=== PATIENT | female | born 1965 | race Caucasian/White ===

== ENCOUNTER → 2019-06-13 | Outpatient (CLI) | payer OTHER ==
[~2019-06-13] MED LIST: ACCUPRIL10 MG PO; AVELOX 400 MG400 M1 PO; BENTYL 20 MG TA20 M1 PO; CIPRO500 MG PO; CIPROFLOXACIN500 M1 PO; CLEOCIN HCL150 MG PO; COLACE 100 MG100 MG PO; FLAGYL500 MG PO; FLOMAX0.4 MG PO; HYDROCODONE-AP1 EAC6 PO; IBUPROFEN 600600 M1 PO; LEVAQUIN 500 M500 M2 PO; NORCO 5-325 TA1 EACH PO; ONDANSETRON HCL4 M2 PO; PRILOSEC 20 MG20 MG PO; QUINU5 PD PO; SENNA-S TABLET1 EACH PO; STOOL SOFTENER100 MG PO; TYLENOL325 MG PO; ZYRTEC10 M5 PO; ZYRTEC10 MG PO
[2019-06-13 11:49] LABS: ABSOLUTE BASOPHILS 0.1 thou/uL (0.0-0.2); ABSOLUTE EOSINOPHILS 0.2 thou/uL (0.0-0.7); ABSOLUTE MONOCYTES 0.7 thou/uL (0.0-1.2); ABSOLUTE NEUTROPHILS 5.5 thou/uL (1.6-8.1); BASOPHILS 0.8 %; EOSINOPHILS 1.9 %; HEMATOCRIT 39.5 % (37.0-47.0); HEMOGLOBIN 13.5 gm/dL (12.0-15.0); LYMPHOCYTES 31.2 %; MCH 28.6 pg (26.0-34.0); MCHC 34.2 g/dL (28.0-37.0); MCV 83.7 fL (80.0-100.0); MONOCYTES 7.7 %; MPV 8.4 fl. (7.2-11.1); NUCLEATED RBCS 0 /100WBC; PLATELET COUNT* 307 thou/uL (150-400); POLYS 58.4 %; RBC 4.72 mil/uL (4.20-5.00); RDW-CV 14.6 % (10.5-14.5); WBC 9.5 thou/uL (4.0-11.0)
[2019-06-13 12:15] LABS: ALBUMIN 3.4 g/dL (3.4-5.0); ALKALINE PHOSPHATASE 90 U/L (46-116); ANION GAP 9 mmol/L (7-16); BUN 13 mg/dL (7-18); CALCIUM 8.9 mg/dL (8.5-10.1); CHLORIDE 104 mmol/L (98-107); CHOLESTEROL 191 mg/dL (<200); CO2 27 mmol/L (21-32); CREATININE 0.8 mg/dL (0.6-1.3); GLUCOSE 82 mg/dL (70-99); HDL CHOLESTEROL 44 mg/dL (>40); LDL CHOLESTEROL 135 mg/dL (<100); POTASSIUM 4.2 mmol/L (3.5-5.1); SGOT 14 U/L (15-37); SGPT 26 U/L (30-65); SODIUM 140 mmol/L (136-145); TC:HDL 4.3 Ratio (Not establshd); TOTAL BILIRUBIN 0.2 mg/dL (<0.1-1.0); TOTAL PROTEIN 8.3 g/dL (6.4-8.2); TRIGLYCERIDE 64 mg/dL (<150); VLDL 13 mg/dL (<40)
[2019-06-13 12:16] LABS: SERUM ASSESSMENT Clear
== END ==
LOC: M.LAB 11:00
PROVIDERS: Family Medicine
DX: R50.9 Fever, unspecified (principal); R53.82 Chronic fatigue, unspecified; G47.33 Obstructive sleep apnea (adult) (pediatric)

== ENCOUNTER 2019-06-24 16:42 | Emergency (ER) | payer OTHER ==
[~2019-06-24] VITALS: Ht 165.1 cm; Wt 86.2 kg
[2019-06-24] MEDS ORDERED: IBUPROFEN 800800 MG PO (17:34)
[2019-06-24] MEDS ORDERED: HYDROCODON-ACE1 EAC7 PO (17:34)
[2019-06-24 18:24] VITALS: BP 151/96
== END 2019-06-24 18:26 | disposition home or self-care (01) ==
LOC: M.ERS 16:42
DX: S92.001A Unspecified fracture of right calcaneus, initial encounter for closed fracture (principal); K21.9 Gastro-esophageal reflux disease without esophagitis; I10 Essential (primary) hypertension; Z90.49 Acquired absence of other specified parts of digestive tract; Z87.442 Personal history of urinary calculi; Z98.890 Other specified postprocedural states; Z88.1 Allergy status to other antibiotic agents; Z88.8 Allergy status to other drugs, medicaments and biological substances; W18.39XA Other fall on same level, initial encounter; Y93.89 Activity, other specified; Y92.89 Other specified places as the place of occurrence of the external cause; Y99.8 Other external cause status

== ENCOUNTER → 2019-07-14 | Outpatient (CLI) | payer OTHER ==
[~2019-07-14] MED LIST changes: +ASA81BEC PO; +BENADRYL25 MG PO; +HYDROCODON-ACE1 EAC7 PO; +IBUPROFEN 800800 MG PO; +LIPITOR40 MG PO; -PRILOSEC 20 MG20 MG PO; +PRILOSEC OTC20 MG PO
--- NOTE | 2019-07-17 08:52 | SLEEP ---
[address] [address] SLEEP STUDY REPORT Name: PARKER TUCKER Room: [facility]#: [id number] Admission: 07/14/19 Attend Phys: Oscar Angela Discharge: Date of : 61 Report #: [id number] THIS REPORT FOR: //name// CC: Gale Bolanos This study has been reviewed in its entirety by a board certified sleep specialist DATE OF SERVICE: 07/14/2019 ATTENDING PHYSICIAN: Gale Bolanos DO The patient is 53 years old who weighs 200 pounds with a BMI of 33.3. The patient's [place] score was 7. The patient underwent diagnostic sleep study performed at [facility]. During the night study, the patient spent 436 minutes in bed and slept for 263 minutes with a low sleep efficiency of 60%. Sleep latency was 33.9 minutes with a REM latency of 254 minutes. Sleep architecture showed normal stage 1 sleep, increased stage 2 sleep, normal slow wave and reduced REM sleep. During the night of the study, the patient had 14 obstructive apneas, 1 mixed apnea, 1 central apnea. There were 25 hypopneas. The patient's apnea-hypopnea index was 9.4 per hour with a REM index of 59 per hour and a supine index of 21 per hour. EKG monitoring revealed an average heart rate of 72 beats per minute. No sustained arrhythmias observed. PLMS were seen at an index of 73 per hour and 19 per hour caused EEG arousals. Nocturnal oximetry study revealed an average oxygen saturation of 96% with the lowest of 84%. 1.9 minutes were spent in oxygen saturation of less than 88%. Due to low AHI, the patient did not meet the split night criteria for CPAP initiation. IMPRESSION: 1. Mild sleep apnea-hypopnea syndrome with moderate increase during supine sleep and further worsening during REM sleep. Total apnea-hypopnea index 9.4 per hour with a supine apnea-hypopnea of 21 per hour and a REM apnea-hypopnea index of 59 per hour. 2. Reduced sleep efficiency resulting from sleep maintenance insomnia. 3. Severe periodic limb movements at an index of 73 per hour and 19 per hour caused EEG arousals. 4. No clinically significant [place] [address] SLEEP STUDY REPORT Name: PARKER TUCKER Room: [facility]#: [id number] Admission: 07/14/19 Attend Phys: Oscar Angela Discharge: Date of : 61 Report #: [id number] RECOMMENDATIONS: 1. If the patient is clinically symptomatic or has comorbid conditions, then consider treatment of sleep apnea with CPAP. Alternate treatment options include use of an oral appliance. 2. Weight loss is advised. 3. Avoid INVENTORY ADMINISTRATOR depressants. 4. Cautioned regarding driving until symptoms of sleep apnea resolve with the above recommendations. 5. The patient should also be further evaluated for symptoms of restless legs during the day and if present, it can be treated with dopaminergic-agonist agents. <ELECTRONICALLY SIGNED> By: Houston Newman MD 07/17/19 0852 2219 2228Aman Jerry Newman MD /nt
== END ==
LOC: M.SLEEPLAB 06-27 09:00
DX: G47.33 Obstructive sleep apnea (adult) (pediatric) (principal); G47.30 Sleep apnea, unspecified

== ENCOUNTER 2019-07-17 14:49 | Inpatient (IN) | payer OTHER ==
[~2019-07-17] VITALS: Ht 165.1 cm; Wt 93.8 kg
[~2019-07-17 14:49] MED LIST changes: -ASA81BEC PO; -BENADRYL25 MG PO; -LIPITOR40 MG PO
[2019-07-17 14:57] VITALS: BP 168/112
[2019-07-17 15:39] LABS: ABSOLUTE BASOPHILS 0.1 thou/uL (0.0-0.2); ABSOLUTE EOSINOPHILS 0.1 thou/uL (0.0-0.7); ABSOLUTE LYMPHOCYTES 2.7 thou/uL (0.8-5.3); ABSOLUTE MONOCYTES 0.5 thou/uL (0.0-1.2); ABSOLUTE NEUTROPHILS 7.7 thou/uL (1.6-8.1); BASOPHILS 0.5 %; EOSINOPHILS 0.6 %; HEMATOCRIT 40.7 % (37.0-47.0); HEMOGLOBIN 13.9 gm/dL (12.0-15.0); LYMPHOCYTES 24.1 %; MCH 28.5 pg (26.0-34.0); MCHC 34.1 g/dL (28.0-37.0); MCV 83.8 fL (80.0-100.0); MONOCYTES 4.7 %; MPV 8.5 fl. (7.2-11.1); NUCLEATED RBCS 0 /100WBC; PLATELET COUNT* 297 thou/uL (150-400); POLYS 70.1 %; RBC 4.86 mil/uL (4.20-5.00); RDW-CV 15.1 % (10.5-14.5)
[2019-07-17 15:46] LABS: PROTIME 10.4 Seconds (9.20-11.50)
[2019-07-17 15:51] LABS: CREATININE 0.8 mg/dL (0.6-1.3); POTASSIUM 3.5 mmol/L (3.5-5.1)
[2019-07-17 15:56] LABS: ALBUMIN 3.4 g/dL (3.4-5.0); TOTAL BILIRUBIN 0.2 mg/dL (<0.1-1.0)
[2019-07-17 18:58] LABS: CHOLESTEROL 235 mg/dL (<200); HDL CHOLESTEROL 52 mg/dL (>40); LDL CHOLESTEROL 169 mg/dL (<100); TC:HDL 4.5 Ratio (Not establshd); TRIGLYCERIDE 73 mg/dL (<150); VLDL 15 mg/dL (<40)
[2019-07-17 18:59] LABS: SERUM ASSESSMENT Clear
--- NOTE | 2019-07-17 19:04 | NUR ---
RECIEVED REPORT AND ASSUMED CARE OF PT.
--- NOTE | 2019-07-17 19:55 | NUR ---
REPORT GIVEN TO JERZY VICKERS. PT BEING TRANSPORTED TO ROOM 206 FOR ADMISSION.
[2019-07-17 19:56] VITALS: BP 143/82
[2019-07-17 20:15] VITALS: BP 148/91
[2019-07-18 00:33] VITALS: BP 140/67
[2019-07-18] MEDS ORDERED: BENADRYL25 MG PO (01:24)
[2019-07-18 04:28] VITALS: BP 129/84
[2019-07-18 05:23] LABS: ABSOLUTE EOSINOPHILS 0.1 thou/uL (0.0-0.7); ABSOLUTE LYMPHOCYTES 3.5 thou/uL (0.8-5.3); ABSOLUTE MONOCYTES 0.8 thou/uL (0.0-1.2); ABSOLUTE NEUTROPHILS 7.8 thou/uL (1.6-8.1); BASOPHILS 0.3 %; HEMOGLOBIN 12.8 gm/dL (12.0-15.0); LYMPHOCYTES 28.5 %; MCH 28.3 pg (26.0-34.0); MCHC 33.5 g/dL (28.0-37.0); MCV 84.4 fL (80.0-100.0); MONOCYTES 6.4 %; MPV 8.4 fl. (7.2-11.1); NUCLEATED RBCS 0 /100WBC; PLATELET COUNT* 293 thou/uL (150-400); POLYS 63.8 %; RBC 4.51 mil/uL (4.20-5.00); RDW-CV 15.1 % (10.5-14.5); WBC 12.2 thou/uL (4.0-11.0)
[2019-07-18 05:29] LABS: CALCIUM 8.6 mg/dL (8.5-10.1); CREATININE 0.9 mg/dL (0.6-1.3); POTASSIUM 4.2 mmol/L (3.5-5.1); TOTAL BILIRUBIN 0.2 mg/dL (<0.1-1.0); TOTAL PROTEIN 7.2 g/dL (6.4-8.2)
--- NOTE | 2019-07-18 05:56 | NUR ---
REPORT RECIEVED FROM ER. PT ORIENTED TO ROOM, CALL LIGHT SHOWN, FALL AGREEMENT GONE OVER, PT STATED UNDERSTANDING. ADMISSION DOCUMENTED. MEDS GIVEN PER E-MAR. PT REFUSING IV THIS SHIFT, STATING THAT IF SHE HAS TO HAVE ONE FOR THE STRESS TEST THEY CAN PUT ONE IN HER WHEN ITS TIME FOR THAT. TELE MONITOR IN PLACE TRACING SR. WILL CONTINUE WITH PLAN OF CARE.
[2019-07-18 08:00] VITALS: BP 116/76
--- NOTE | 2019-07-18 09:41 | EKG ---
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1965 Requested By: Srinivas Forde Order Number: [id number] MD: Kevan Alfonso Measurements Intervals [place] Rate: 68 P: 49 AR: 163 QRS: -8 QRSD: 104 T: 12 QT: 402 QTc: 428 Interpretive Statements Sinus rhythm Probable left ventricular hypertrophy Baseline wander in lead(s) V1 No previous ECG available for comparison Electronically Signed On 07-18-2019 9:40:55 RODBUSTER by Kevan Alfonso [email or web address] <ELECTRONICALLY SIGNED> By: Kevan Alfonso MD, [facility] 07/18/19 0940 1459 1459 Kevan Alfonso MD, [facility] /EPI
--- NOTE | 2019-07-18 10:41 | NUR ---
Pt is A&O. Resides at home with . Independent. Pt states that she had a sleep study on Sunday, waiting for results to determine if she will need a home cpap. No hx of HH or SNF. Goal is home at co. Following.
[2019-07-18 11:49] VITALS: BP 116/76
[2019-07-18] MEDS ORDERED: LIPITOR40 MG PO (12:45)
[2019-07-18] MEDS ORDERED: ASA81BEC PO (12:46)
[2019-07-18 12:51] VITALS: BP 116/76
[2019-07-18 12:52] VITALS: BP 116/76
== END 2019-07-18 13:23 | disposition home or self-care (01) | DRG 311 ==
LOC: M.ERS 14:49 → M.2W 16:10 → M.TBA-ER 16:10 → M.2W 20:42
PROVIDERS: Emergency Medicine; ADMIT Internal Medicine
DX: I20.0 Unstable angina (principal); K21.9 Gastro-esophageal reflux disease without esophagitis; I10 Essential (primary) hypertension; E86.0 Dehydration; E78.00 Pure hypercholesterolemia, unspecified; Z53.29 Procedure and treatment not carried out because of patient's decision for other reasons; K57.90 Diverticulosis of intestine, part unspecified, without perforation or abscess without bleeding; Z87.442 Personal history of urinary calculi; Z90.49 Acquired absence of other specified parts of digestive tract; Z79.899 Other long term (current) drug therapy; Z88.1 Allergy status to other antibiotic agents; Z88.8 Allergy status to other drugs, medicaments and biological substances; Z82.49 Family history of ischemic heart disease and other diseases of the circulatory system; Z80.8 Family history of malignant neoplasm of other organs or systems; Z83.3 Family history of diabetes mellitus

== ENCOUNTER 2020-11-17 04:23 | Observation (INO) | payer OTHER ==
[~2020-11-17] VITALS: Ht 165.1 cm; Wt 88.0 kg
[~2020-11-17 04:23] MED LIST changes: +ASA81BEC PO; +BENADRYL25 MG PO; +LIPITOR40 MG PO
[2020-11-17 04:30] VITALS: BP 141/93
[2020-11-17 05:15] LABS: URINE BILIRUBIN NEGATIVE (Negative); URINE BLOOD NEGATIVE (Negative); URINE CLARITY CLEAR; URINE COLOR YELLOW; URINE GLUCOSE-RANDOM NEGATIVE (Negative); URINE KETONES NEGATIVE (Negative); URINE LEUKOCYTES-REFLEX NEGATIVE (Negative); URINE NITRITE-REFLEX NEGATIVE (Negative); URINE PROTEIN NEGATIVE (Negative); URINE SPECIFIC GRAVITY >= 1.030 (1.005-1.030); URINE UROBILINOGEN 0.2 E.U./dl (0.2-1.0)
[2020-11-17 05:31] LABS: ABSOLUTE EOSINOPHILS 0.2 thou/uL (0.0-0.7); ABSOLUTE LYMPHOCYTES 1.2 thou/uL (0.8-5.3); ABSOLUTE MONOCYTES 0.7 thou/uL (0.0-1.2); ABSOLUTE NEUTROPHILS 10.3 thou/uL (1.6-8.1); BASOPHILS 0.1 %; EOSINOPHILS 1.3 %; HEMATOCRIT 41.7 % (37.0-47.0); LYMPHOCYTES 9.8 %; MCHC 33.5 g/dL (28.0-37.0); MCV 86.6 fL (80.0-100.0); MONOCYTES 5.3 %; MPV 9.2 fl. (7.2-11.1); NUCLEATED RBCS 0 /100WBC; PLATELET COUNT* 258 thou/uL (150-400); POLYS 83.5 %; RBC 4.81 mil/uL (4.20-5.00); RDW-CV 14.9 % (10.5-14.5); WBC 12.3 thou/uL (4.0-11.0)
[2020-11-17 05:35] LABS: CALCIUM 9.1 mg/dL (8.5-10.1); CREATININE 0.7 mg/dL (0.6-1.3)
[2020-11-17 05:39] LABS: ALBUMIN 3.4 g/dL (3.4-5.0); TOTAL BILIRUBIN 0.5 mg/dL (<0.1-1.0); TOTAL PROTEIN 7.5 g/dL (6.4-8.2)
[2020-11-17 09:10] VITALS: BP 110/70
[2020-11-17 09:25] VITALS: BP 122/78
--- NOTE | 2020-11-17 10:33 | EKG ---
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 : 1965 Requested By: Susanna Moralez Order Number: [id number] MD: Sage Grimm Measurements Intervals [place] Rate: 67 P: 48 MN: 170 QRS: -18 QRSD: 104 T: -13 QT: 391 QTc: 413 Interpretive Statements Sinus rhythm Left ventricular hypertrophy Borderline T abnormalities, inferior leads Compared to ECG 07/17/2019 14:59:19 no change Electronically Signed On 11-17-2020 10:33:33 CDT by Sage Grimm [email or web address] <ELECTRONICALLY SIGNED> By: Sage Grimm MD, [facility] 11/17/20 1033 0503 0503 Sage Grimm MD, [facility] /EPI
[2020-11-17 16:32] VITALS: BP 123/82
--- NOTE | 2020-11-17 19:22 | CON ---
[address] [address] CONSULTATION Name: PARKER TUCKER Room: [address] M.R.#: [id number] Admission: 11/17/20 Attend Phys: Apolonia German MD Discharge: Date of : 61 Report #: [id number] THIS REPORT FOR: cc: Gale Bolanos Linda J. DO Vardakis, Gregory DO DOC #: [id number] cc: DO Guadalupe Angela DATA MANAGEMENT MANAGER DATE OF CONSULTATION: 11/17/2020 Please note at the time of this dictation, the patient was seen and physically examined by myself. REASON FOR CONSULTATION: Epigastric abdominal pain. HISTORY OF PRESENT ILLNESS: This is a 55-year-old female presented to the Emergency Room after just not feeling right over the weekend, and on Sunday, started having some diarrhea in the middle of the night. She took a little bit of Imodium that seemed to help, but she continued to have some loose stools. She then had some episodes of some chilling. This started on Sunday night. She felt a little bit better on Sunday. Then, she began having some issues with abdominal pain in the epigastric area radiating into her back and upwards like she did when she had her gallbladder attack. She did not have any nausea or vomiting. This pain would come and go and did not last for a very long period of time. However, the intensity began getting worse. She did come to the Emergency Room once, but pain was no longer there, and as she was returning home, it came back with even significantly more pain prompting her to come back to the Emergency Room and then she was admitted. She did report that she felt like she was a little dehydrated. The patient does have some acid reflux, for which she takes [id number] omeprazole that helps with that. She has had a colonoscopy done over at [facility] and to her knowledge, everything was normal except for some diverticulosis. Otherwise, her bowel habits are normally soft and formed on a daily basis. She has not noticed any bright red blood or any melanotic stool. ALLERGIES: Include AMOXICILLIN, FLAGYL, AND COMPAZINE. MEDICATIONS FROM HOME: 1. Omeprazole. 2. Accupril. 3. Stool softener. 4. Benadryl. 5. [place] [address] CONSULTATION Name: PARKER TUCKER Room: [address]#: [id number] Admission: 11/17/20 Attend Phys: Apolonia German MD Discharge: Date of : 61 Report #: [id number] 6. Enteric coated aspirin. PAST MEDICAL HISTORY: 1. Diverticulosis with some diverticulitis. 2. . 3. She has had her wisdom teeth out. 4. Vaginal births. 6. Lithotripsy. 7. Laparoscopic cholecystectomy on 09/05/2017. PAST SURGICAL HISTORY: 1. Laparoscopic cholecystectomy. 2. Lithotripsy. FAMILY HISTORY: Negative for any GI or female cancers. SOCIAL HISTORY: Denies any alcohol, tobacco, or illegal drug use. REVIEW OF SYSTEMS: Twelve-point review of systems is essentially negative except what is mentioned in the HPI. PHYSICAL EXAMINATION: VITAL SIGNS: Temperature 36.3, pulse 59, respirations 18, blood pressure 122/78. HEART: Regular rate and rhythm. LUNGS: Clear. ABDOMEN: Soft. Positive bowel sounds in all 4 quadrants with very minimal tenderness noted in the epigastric area to palpation. LABORATORY DATA: Hemoglobin is 14, white count is 12.3, platelets 258. GFR is 86. Lipase is 100. Total bilirubin 0.5, alkaline phosphatase 102. ALT and AST is 14. IMAGING: CT scan shows CBD at 10 mm and tapers as it approaches the pancreatic head with no obstructing lesion noted. Some diverticulosis noted as well. ASSESSMENT: 1. Abdominal pain, epigastric, very minimal. Almost completely resolved. 2. Leukocytosis. 3. Loose stools, resolved. 4. Gastroesophageal reflux disease, controlled with her egym-myz-fvnydki omeprazole. PLAN: [place] [address] CONSULTATION Name: PARKER TUCKER Room: [address] [facility]#: [id number] Admission: 11/17/20 Attend Phys: Apolonia German MD Discharge: Date of : 61 Report #: [id number] 1. MRCP. 2. Await above results. 3. Further recommendations to be made once the above has all been noted. Thank you for allowing us to participate in this patient's care. Please do not hesitate to call with any questions regarding this consult. DO YURY Hillman/VELMA <ELECTRONICALLY SIGNED> By: Jason Munguia DO 11/17/20 1922 1054 1302Jason Munguia DO /nt
[2020-11-17 20:00] VITALS: BP 132/80
[2020-11-18 03:43] LABS: HEMATOCRIT 36.8 % (37.0-47.0); HEMOGLOBIN 12.3 gm/dL (12.0-15.0); MCH 29.1 pg (26.0-34.0); MCHC 33.4 g/dL (28.0-37.0); MCV 87.2 fL (80.0-100.0); MPV 9.2 fl. (7.2-11.1); RBC 4.22 mil/uL (4.20-5.00); RDW-CV 15.1 % (10.5-14.5); WBC 9.6 thou/uL (4.0-11.0)
[2020-11-18 04:11] LABS: ALBUMIN 2.7 g/dL (3.4-5.0); ALKALINE PHOSPHATASE 93 U/L (46-116); ANION GAP 5 mmol/L (7-16); BUN 8 mg/dL (7-18); CALCIUM 8.5 mg/dL (8.5-10.1); CHLORIDE 108 mmol/L (98-107); CO2 28 mmol/L (21-32); CREATININE 0.9 mg/dL (0.6-1.3); GLUCOSE 118 mg/dL (70-99); MAGNESIUM 1.8 mg/dL (1.8-2.4); SGOT 12 U/L (15-37); SGPT 11 U/L (30-65); SODIUM 141 mmol/L (136-145); TOTAL PROTEIN 6.3 g/dL (6.4-8.2)
[2020-11-18 04:15] LABS: TOTAL BILIRUBIN < 0.1 mg/dL (<0.1-1.0)
[2020-11-18 07:50] VITALS: BP 153/87
[2020-11-18 12:13] VITALS: BP 153/87
[2020-11-18 12:57] VITALS: BP 153/87
== END 2020-11-18 12:30 | disposition home or self-care (01) ==
LOC: M.ERS 04:23 → M.TBA-ER 07:05 → M.ORTHSURG 07:05
PROVIDERS: Personal Emergency Response Attendant; ADMIT Internal Medicine; ATTEND Internal Medicine
DX: R10.11 Right upper quadrant pain (principal); R11.2 Nausea with vomiting, unspecified; K80.50 Calculus of bile duct without cholangitis or cholecystitis without obstruction; Z20.822 Contact with and (suspected) exposure to COVID-19; K21.9 Gastro-esophageal reflux disease without esophagitis; I10 Essential (primary) hypertension; Z88.1 Allergy status to other antibiotic agents; Z88.8 Allergy status to other drugs, medicaments and biological substances; Z79.82 Long term (current) use of aspirin; Z79.899 Other long term (current) drug therapy; Z90.49 Acquired absence of other specified parts of digestive tract; Z87.442 Personal history of urinary calculi; Z87.19 Personal history of other diseases of the digestive system